=== PATIENT | female | born 1970 | race Caucasian/White ===

== ENCOUNTER 2021-12-19 14:03 | Emergency (ER) | payer BC ==
[~2021-12-19] VITALS: Ht 177.8 cm; Wt 72.1 kg
--- NOTE | 2021-12-19 14:25 | NUR ---
RECEIVED PT 51yrs female from home walking in c/o Epgastric spasm and pain with frequnt N/v
[2021-12-19] MEDS ORDERED: ONDANSETRON HCL/PF 4 MG/2 ML VIAL ONE (14:51)
[2021-12-19] MEDS ORDERED: ONDANSETRON HCL/PF 4 MG/2 ML VIAL IVP ONE (15:00)
[2021-12-19] MEDS ORDERED: IV NS 0.9% 1,000 ML BAG IV ONE (15:00)
--- NOTE | 2021-12-19 15:00 | NUR ---
To ct scan of ABDOMIN
--- NOTE | 2021-12-19 15:15 | NUR ---
Inserted ango catheter g [address] on [address] ac blood drow and sent to lab
[2021-12-19 15:19] LABS: BASOPHILS % (AUTO) 0.2 % (0.0-2.0); EOSINOPHILS % (AUTO) 0.3 % (0.0-6.0); HEMATOCRIT 40 % (33-45); HEMOGLOBIN 13.3 g/dL (11.5-14.8); LYMPHOCYTES # (AUTO) 1.3 K/uL (0.8-4.8); LYMPHOCYTES % (AUTO) 9.8 % (20.0-44.0); MEAN CORPUSCULAR HGB CONC 33 g/dl (31.0-36.0); MEAN CORPUSCULAR VOLUME 85 fL (82-100); MONOCYTES # (AUTO) 0.6 K/uL (0.1-1.30); MONOCYTES % (AUTO) 4.7 % (2.0-12.0); NEUTROPHILS # (AUTO) 11.2 K/uL (1.8-8.9); PLATELET COUNT (AUTO) 245 K/uL (150-450); RED BLOOD CELL COUNT(AUTO) 4.77 MIL/uL (4.0-5.2); WHITE BLOOD COUNT (AUTO) 13.2 K/uL (4.3-11.0)
[2021-12-19 15:35] LABS: CALCIUM, SERUM 9.8 mg/dL (8.5-10.1); CREATININE 0.6 mg/dL (0.6-1.3); POTASSIUM 3.6 mmol/L (3.5-5.1)
[2021-12-19 15:39] LABS: ALBUMIN 4.6 g/dL (3.4-5.0); BILIRUBIN,DIRECT 0.1 mg/dL (0.0-0.2); BILIRUBIN,TOTAL 0.7 mg/dL (0.2-1.0); TOTAL PROTEIN, SERUM 8.2 g/dL (6.4-8.2)
--- NOTE | 2021-12-19 16:00 | NUR ---
Resting with epegastric pain
--- NOTE | 2021-12-19 17:00 | NUR ---
VITAL SIGNS WITHIN NORMAL LIMITS.
[2021-12-19] MEDS ORDERED: FLUT9.9S NS (17:37)
--- NOTE | 2021-12-19 18:03 | NUR ---
TEE FOR LAB dispo
--- NOTE | 2021-12-19 18:25 | NUR ---
STONE BEATTY SENT TO LAB
--- NOTE | 2021-12-19 18:31 | NUR ---
BED 047-1
--- NOTE | 2021-12-19 18:58 | NUR ---
HAND OFF TO RUSLAN RN TO ROOM 326-1 PT AWAKE AND ALERT
[2021-12-19] MEDS ORDERED: ONDANSETRON HCL/PF 4 MG/2 ML VIAL IVP PRN (19:00)
[2021-12-19] MEDS ORDERED: MAGNESIUM HYDROXIDE 30 ML UDC PO PRN (19:00)
[2021-12-19] MEDS ORDERED: ZOLPIDEM TARTRATE 5 MG TABLET PO PRN (19:00)
[2021-12-19] MEDS ORDERED: MORPHINE SULFATE INJ 2 MG/ML DISP.SYRIN IV PRN (19:00)
[2021-12-19] MEDS ORDERED: IV D5/0.45 NACL 1,000 ML IV PRN (19:00)
[2021-12-19] MEDS ORDERED: MAG HYDROX/AL HYDROX/SIMETH 30 ML UDC PO PRN (19:00)
[2021-12-19] MEDS ORDERED: Z GUARD REMEDY 4 OZ OINT TP PRN (19:00)
[2021-12-19] MEDS ORDERED: ACETAMINOPHEN 325 MG TABLET PO PRN (19:00)
[2021-12-19] MEDS ORDERED: HYDROCODONE/APAP 5/325MG TABLET PO PRN (19:00)
[2021-12-19 19:02] VITALS: BP 116/86
--- NOTE | 2021-12-19 19:15 | NUR ---
HAND OFF JOSE CANALES
--- NOTE | 2021-12-19 20:04 | NUR ---
Patient does not wish to proceed with medical care recommended by Dr. Steiner. Patient given information related to possible complications, up to and including , which could occur as a result of leaving the hospital at this time. Patient verbalizes understanding of risks involved due to leaving against medical advice. Patient has signed AMA form.IV removed. Catheter intact and site benign. Pressure and 4x4 applied to site. No bleeding noted.
[2021-12-20] MEDS ORDERED: PANTOPRAZOLE 40 MG VIAL IV SCH (09:00)
== END 2021-12-19 20:04 | disposition left against medical advice (07) ==
LOC: ER 14:10 → UNDOADMIN 19:32 → MED 19:32 → ER 20:04
DX: R13.10 Dysphagia, unspecified (principal); R10.13 Epigastric pain; R91.8 Other nonspecific abnormal finding of lung field; Z20.822 Contact with and (suspected) exposure to COVID-19; D72.829 Elevated white blood cell count, unspecified; Z53.29 Procedure and treatment not carried out because of patient's decision for other reasons
CPT/HCPCS: 99285; 74176; 96374; 96361; 87426; 93005; 85025; 80048; 83690; 80076; 36415; J2405; J7030